=== PATIENT | female | born 1965 | race Caucasian/White ===

== ENCOUNTER 2018-07-17 13:05 | Emergency (ER) | payer BC ==
[2018-07-17] MEDS ORDERED: 0.9 % SODIUM CHLORIDE 1000ML 1,000 ML IV PRN (13:23)
[2018-07-17] MEDS ORDERED: LORAZEPAM 2 MG/ML VIAL IV ONE (13:24)
[2018-07-17 13:35] LABS: BASO % 0.3 % (0-6); EOS % 0.3 % (0-6); GRAN % 76.8 % (47-80); HEMATOCRIT 37.1 % (35.0-47.0); MEAN CELL VOLUME 86.9 fl (81-97); MEAN CORPUSCULAR HEMOGLOBIN 30.4 pg (27-33); MEAN PLATELET VOLUME 9.7 fl (7.4-10.4); MONO % 6.6 % (0-9); PLATELET COUNT 374 K/uL (130-400); RED BLOOD COUNT 4.27 M/uL (3.80-5.40); RED CELL DISTRIBUTION WIDTH 12.9 % (11.5-14.5); WHITE BLOOD COUNT W/O DIFF 10.8 K/uL (4.2-12.2)
[2018-07-17 13:52] LABS: BLOOD UREA NITROGEN 4 mg/dL (6-20); CREATININE 0.5 mg/dL (0.5-0.9); EST GLOMERULAR FILTRATION RATE > 60 mL/min
[2018-07-17 13:55] LABS: GLUCOSE,RANDOM 116 mg/dL (74-109)
--- NOTE | 2018-07-17 14:04 | Emergency Department Record ---
Anxiety - General Chief Complaint: Anxiety Stated Complaint: CHRISTOPHER,HIGH BLOOD PRESSURE VOMITING ANXIETY Time Seen by Provider: 07/17/18 13:21 Mode of Arrival: Wheelchair - History of Present Illness Onset/Timin -: Month(s) Place: Home Previous History of Same: Yes Severity: Moderate, Severe Quality: Constant Provoking factors: Emotional stress, Other Improves With: Nothing Worsens With: Thinking about event Associated symptoms: Palpitations, Shortness of breath - Related Data Home Medications: Previous Rx's Medication Instructions Recorded Lorazepam [Ativan] 1 mg PO Q6HR 2 Days #6 tablet 07/17/18 Allergies/Adverse Reactions: Allergies Allergy/AdvReac Type Severity Reaction Status Date / Time azithromycin Allergy Severe TACHYCARDIA Unverified 12/05/17 11:38 prochlorperazine Allergy Severe TACHYCARDIA Unverified 12/05/17 11:38 [From Compazine] prochlorperazine edisylate Allergy Severe TACHYCARDIA Unverified 12/05/17 11:38 [From Compazine] prochlorperazine maleate Allergy Severe TACHYCARDIA Unverified 12/05/17 11:38 [From Compazine] pseudoephedrine HCl Allergy Severe TACHYCARDIA Unverified 12/05/17 11:38 [From Sudafed] sulfamethoxazole Allergy Mild hives Unverified 12/05/17 11:38 [From Bactrim] trimethoprim [From Bactrim] Allergy Mild hives Unverified 12/05/17 11:38 bee venom protein (honey bee) Allergy ANAPHYLAXIS Verified 07/17/18 13:28 dopamine Allergy BEHAVIORAL Verified 07/17/18 13:28 CHANGES erythromycin base Allergy HIVES Unverified 07/17/18 13:28 Iodinated Contrast- Oral and Allergy HIVES Verified 07/17/18 13:29 IV Dye Travel Screening - Travel/Exposure Within Last 30 Days Have you traveled within the last 30 days?: No Review of Systems Constitutional: Denies: Chills, Fever, Weakness Eyes: Denies: Eye discharge, Photophobia ENT: Denies: Congestion, Ear pain, Hearing loss Respiratory: Denies: Cough, Dyspnea, Wheezes Cardiovascular: Denies: Arrhythmia, Chest pain, Palpitations, Syncope Endocrine: Denies: Fatigue, Polyuria Gastrointestinal: Denies: Abdominal pain, Nausea, Vomiting Genitourinary: Denies: Abnormal menses Musculoskeletal: Denies: Arthralgia, Back pain Skin: Denies: Bruising Neurological: Denies: Headache, Vertigo, Weakness Psychiatric: Reports: Anxiety. Denies: Auditory hallucinations, Depression, Homicidal thoughts, Suicidal thoughts Hematological/Lymphatic: Denies: Anemia Past Medical History - SOCIAL HISTORY Smoking Status: Never smoker Alcohol Use: None Drug Use: None - RESPIRATORY Hx Respiratory Disorders: No - CARDIOVASCULAR Hx Cardio Disorders: No - NEURO Hx Neuro Disorders: Yes Hx Parkinson's Disease: Yes (trauma induced) - GI Hx GI Disorders: No - Hx Genitourinary Disorders: No - ENDOCRINE Hx Endocrine Disorders: No Hx Diabetes: No (hypoglycemic) - MUSCULOSKELETAL Hx Musculoskeletal Disorders: No - PSYCH Hx Psych Problems: Yes Hx Anxiety: Yes - HEMATOLOGY/ONCOLOGY Hx Hematology/Oncology Disorders: No Family Medical History Any Significant Family History?: No Physical Exam - General General Appearance: Alert, Oriented x3, Cooperative, Moderate distress - Head Head exam: Normal inspection - Eye Eye exam: Normal appearance, PERRL - ENT ENT exam: Normal exam, Mucous membranes moist, Normal external ear exam, Normal orophraynx, TM's normal bilaterally - Neck Neck exam: Normal inspection, Full ROM. negative: Tenderness - Respiratory Respiratory exam: Normal lung sounds bilaterally. negative: Respiratory distress - Cardiovascular Cardiovascular Exam: Normal rhythm, Normal heart sounds, Tachycardia Peripheral Pulses: 2+: Radial (R), Radial (L) - GI/Abdominal GI/Abdominal exam: Soft, Normal bowel sounds. negative: Distended, Guarding, Tenderness - Extremities Extremities exam: Normal inspection. negative: Pedal edema - Back Back exam: Reports: Normal inspection - Neurological Neurological exam: Alert, Normal gait, Oriented X3 - Psychiatric Psychiatric exam: Anxious. negative: Flat affect, Homicidal ideation, Suicidal ideation - Skin Skin exam: Normal color. negative: Rash Course Vital Signs 07/17/18 13:10 Temperature 98.4 F Pulse Rate 105 H Respiratory 20 Rate Blood Pressure 183/100 Pulse Ox 100 - Reevaluation(s) Reevaluation #1: 07/17/18 14:41 Pt calm after ativan. Labs reviewed. Family at bedside and supportive. Requesting referral to out mental health. Not suicidal. Medical Decision Making - Lab Data Result diagrams: 07/17/18 13:25 07/17/18 13:25 Lab Results 07/17/18 07/17/18 07/17/18 Range/Units 13:25 13:25 13:25 WBC 10.8 (4.2-12.2) K/uL RBC 4.27 (3.80-5.40) M/uL Hgb 13.0 (11.6-16.0) gm/dl Hct 37.1 (35.0-47.0) % MCV 86.9 (81-97) fl MCH 30.4 (27-33) pg MCHC 35.0 (32-36) g/dl RDW 12.9 (11.5-14.5) % Plt Count 374 (130-400) K/uL MPV 9.7 (7.4-10.4) fl Gran % 76.8 (47-80) % Lymphocytes % 16.0 (16-45) % Monocytes % 6.6 (0-9) % Eosinophils % 0.3 (0-6) % Basophils % 0.3 (0-6) % Carbon Dioxide 22.0 (22-29) mmol/L Anion Gap 13.0 (7-16) BUN 4 L (6-20) mg/dL Creatinine 0.5 (0.5-0.9) mg/dL Estimated GFR > 60 mL/min Random Glucose 116 H (74-109) mg/dL Calcium 9.1 (8.6-10.0) mg/dL TSH 1.10 (0.270-4.20) uIU/mL Disposition Disposition: Discharge Clinical Impression: Anxiety as acute reaction to exceptional stress Condition: (2) Stable Instructions: Social Anxiety Disorder (ED) Additional Instructions: [facility] up [facility] at [phone] regarding a Behavioral Health evaluation. Prescriptions: Lorazepam [Ativan] 1 mg PO Q6HR 2 Days #6 tablet Forms: Patient Portal Access Time of Disposition: 14:43 Quality - Quality Measures Quality Measures: N/A - Blood Pressure Screening Does Patient Have Any of the Following: No Blood Pressure Classification: Hypertensive Reading Systolic Measurement: 183 Diastolic Measurement: 100 Screening for High Blood Pressure: < Pre-Hypertensive BP, F/U Documented > [ G8950] Pre-Hypertensive Follow-up Interventions: Follow-up with rescreen every year.
== END 2018-07-17 16:07 | disposition home or self-care (01) ==
LOC: ER 13:05
DX: F41.1 Generalized anxiety disorder (principal); F43.0 Acute stress reaction; R11.11 Vomiting without nausea; R06.02 Shortness of breath; E03.9 Hypothyroidism, unspecified; E16.2 Hypoglycemia, unspecified; E87.6 Hypokalemia
CPT/HCPCS: 99284 ×2; 96374; 85025; 80048; 80053; 84439; 84443; J2060

== ENCOUNTER 2019-04-10 10:12 | Emergency (ER) | payer BC ==
--- NOTE | 2019-04-10 10:36 | Emergency Department Record ---
Anxiety - General Chief Complaint: Panic attack Stated Complaint: PANIC ATTACK Time Seen by Provider: 04/10/19 10:31 Source: Patient Mode of Arrival: Ambulatory Limitations: No limitations - History of Present Illness Initial Comments: 53 yo female presents with an anxiety attack. She has a long history of PTSD. Her dog yesterday. She has not been able to calm her emotions. She denies any other changes in her health. She is a patient of Lubna Artis at [facility]. Complaint: Anxiety -: Days(s) (1) Symptoms: Other Place: Home Previous History of Same: Yes Severity: Severe Quality: Constant Provoking factors: Emotional stress, Other (Dog ) Improves With: Nothing Worsens With: Nothing Associated symptoms: Denies other symptoms - Related Data Home Medications: Home Medications Medication Instructions Recorded Confirmed Last Taken Lorazepam [Ativan] 1 mg PO TID 04/10/19 04/10/19 Unknown Allergies/Adverse Reactions: Allergies Allergy/AdvReac Type Severity Reaction Status Date / Time azithromycin Allergy Severe TACHYCARDIA Verified 04/10/19 10:17 prochlorperazine Allergy Severe TACHYCARDIA Verified 04/10/19 10:17 [From Compazine] prochlorperazine edisylate Allergy Severe TACHYCARDIA Verified 04/10/19 10:17 [From Compazine] prochlorperazine maleate Allergy Severe TACHYCARDIA Verified 04/10/19 10:17 [From Compazine] pseudoephedrine HCl Allergy Severe TACHYCARDIA Verified 04/10/19 10:17 [From Sudafed] sulfamethoxazole Allergy Mild hives Verified 04/10/19 10:17 [From Bactrim] trimethoprim [From Bactrim] Allergy Mild hives Verified 04/10/19 10:17 bee venom protein (honey bee) Allergy ANAPHYLAXIS Verified 04/10/19 10:17 carbidopa Allergy PT UNSURE Verified 04/10/19 10:21 OF REACTION dopamine Allergy BEHAVIORAL Verified 04/10/19 10:17 CHANGES doxycycline Allergy "been Verified 04/10/19 10:21 allergic since little, hives" erythromycin base Allergy HIVES Verified 04/10/19 10:17 escitalopram [From Lexapro] Allergy makes Verified 04/10/19 10:21 anxiety worse hydroxyzine Allergy makes Verified 04/10/19 10:21 anxiety worse Iodinated Contrast Media Allergy HIVES Verified 04/10/19 10:17 [Iodinated Contrast- Oral and IV Dye] sertraline [From Zoloft] Allergy makes Verified 04/10/19 10:21 anxiety worse vilazodone [From Viibryd] Allergy makes Verified 04/10/19 10:21 anxiety worse Travel Screening - Travel/Exposure Within Last 30 Days Have you traveled within the last 30 days?: No Review of Systems Constitutional: Denies: Chills, Fever, Malaise, Weakness Eyes: Denies: Eye discharge ENT: Denies: Congestion, Throat pain Respiratory: Denies: Cough, Dyspnea Cardiovascular: Denies: Chest pain, Syncope Endocrine: Denies: Fatigue Gastrointestinal: Denies: Abdominal pain, Diarrhea, Nausea, Vomiting Genitourinary: Denies: Dysuria Musculoskeletal: Denies: Arthralgia, Back pain, Myalgia Skin: Denies: Bruising, Change in color, Rash Neurological: Denies: Headache, Weakness Psychiatric: Reports: Anxiety. Denies: Depression Hematological/Lymphatic: Denies: Anemia, Easy bleeding, Easy bruising Past Medical History - SOCIAL HISTORY Smoking Status: Never smoker Alcohol Use: None Drug Use: None - RESPIRATORY Hx Respiratory Disorders: Yes Comment:: trouble breathing during panic attacks - CARDIOVASCULAR Hx Cardio Disorders: No - NEURO Hx Neuro Disorders: Yes Hx Parkinson's Disease: Yes (trauma induced) - GI Hx GI Disorders: No - Hx Genitourinary Disorders: No - ENDOCRINE Hx Endocrine Disorders: No Hx Diabetes: No (hypoglycemic) - MUSCULOSKELETAL Hx Musculoskeletal Disorders: No - PSYCH Hx Psych Problems: Yes Hx Anxiety: Yes Comment:: PTSD - HEMATOLOGY/ONCOLOGY Hx Hematology/Oncology Disorders: No Family Medical History Any Significant Family History?: No Physical Exam - General General Appearance: Alert, Oriented x3, Cooperative, No acute distress Limitations: No limitations - Head Head exam: Atraumatic, Normal inspection - Eye Eye exam: Normal appearance, PERRL. negative: Conjunctival injection, Scleral icterus - ENT ENT exam: Normal exam Ear exam: Normal external inspection Nasal Exam: Normal inspection Mouth exam: Normal external inspection - Neck Neck exam: Normal inspection - Respiratory Respiratory exam: Normal lung sounds bilaterally. negative: Respiratory distress - Cardiovascular Cardiovascular Exam: Regular rate, Normal rhythm, Normal heart sounds - Rectal Rectal exam: Deferred - exam: Deferred - Extremities Extremities exam: Normal inspection - Neurological Neurological exam: Alert, Normal gait, Oriented X3. negative: Altered - Psychiatric Psychiatric exam: Anxious (tearful) - Skin Skin exam: Dry, Intact, Normal color, Warm Course Vital Signs 04/10/19 10:14 Temperature 97.6 F Pulse Rate 105 H Respiratory 16 Rate Blood Pressure 219/125 Pulse Ox 100 - Reevaluation(s) Reevaluation #1: 04/10/19 10:37 Message left with the patient's behavioral therapist at [facility] Lubna. 04/10/19 12:03 Lubna is available and will see the patient in the ED 04/10/19 12:34 The patient was reassured and given coping skills again She is stable for DC Disposition Disposition: Discharge Clinical Impression: Anxiety attack Disposition: Home, Self-Care Condition: (1) Good Instructions: Panic Disorder (ED) Additional Instructions: Return to the ER for a recheck if worse, any new concerns or questions Forms: Patient Portal Access Time of Disposition: 12:04 Quality - Quality Measures Quality Measures: N/A - Blood Pressure Screening Does Patient Have Any of the Following: Active Dx of HTN Blood Pressure Classification: Hypertensive Reading Systolic Measurement: 219 Diastolic Measurement: 125 Screening for High Blood Pressure: Patient Exclusion, Hx of HTN [G9744]
[2019-04-10] MEDS: LORAZEPAM 2 MG/ML VIAL IV ONE (11:08)
[2019-04-10] MEDS: IBUPROFEN 400 MG TABLET PO ONE (11:36)
== END 2019-04-10 12:52 | disposition home or self-care (01) ==
LOC: ER 10:12
DX: F43.0 Acute stress reaction (principal); I10 Essential (primary) hypertension
CPT/HCPCS: 96374; 99284

== ENCOUNTER 2019-05-04 13:01 | Emergency (ER) | payer SELFPAY ==
--- NOTE | 2019-05-04 13:27 | Emergency Department Record ---
Anxiety - General Chief Complaint: Panic attack Stated Complaint: ANXIETY Time Seen by Provider: 05/04/19 13:14 Source: Patient, Family Mode of Arrival: Wheelchair Limitations: No limitations - History of Present Illness Initial Comments: The patient is here due to a long hx of anxiety for at least a year and now is having an extra bad flare up for the last 4 hours. She has a long hx of similar issues and does take Ativan for it but it has not helped today. She is very upset due to the holidays coming up and she does not have a nito tree up yet and she will be unable to see her daughter. The patient does see a counselor here at [facility] weekly and has been doing better. She denies any CP, SOB, CHRISTOPHER, or AP. She did just take a 1 mg Ativan orally a half hour ago. Complaint: Anxiety Onset/Timin -: Hour(s) Symptoms: Other Place: Home Previous History of Same: Yes Severity: Severe Quality: Intermittant Provoking factors: Emotional stress Improves With: Medication - Related Data Allergies/Adverse Reactions: Allergies Allergy/AdvReac Type Severity Reaction Status Date / Time azithromycin Allergy Severe TACHYCARDIA Verified 05/04/19 13:15 prochlorperazine Allergy Severe TACHYCARDIA Verified 05/04/19 13:15 [From Compazine] prochlorperazine edisylate Allergy Severe TACHYCARDIA Verified 05/04/19 13:15 [From Compazine] prochlorperazine maleate Allergy Severe TACHYCARDIA Verified 05/04/19 13:15 [From Compazine] pseudoephedrine HCl Allergy Severe TACHYCARDIA Verified 05/04/19 13:15 [From Sudafed] sulfamethoxazole Allergy Mild hives Verified 05/04/19 13:15 [From Bactrim] trimethoprim [From Bactrim] Allergy Mild hives Verified 05/04/19 13:15 bee venom protein (honey bee) Allergy ANAPHYLAXIS Verified 05/04/19 13:15 carbidopa Allergy PT UNSURE Verified 05/04/19 13:15 OF REACTION dopamine Allergy BEHAVIORAL Verified 05/04/19 13:15 CHANGES doxycycline Allergy "been Verified 05/04/19 13:15 allergic since little, hives" erythromycin base Allergy HIVES Verified 05/04/19 13:15 escitalopram [From Lexapro] Allergy makes Verified 05/04/19 13:15 anxiety worse hydroxyzine Allergy makes Verified 05/04/19 13:15 anxiety worse Iodinated Contrast Media Allergy HIVES Verified 05/04/19 13:15 [Iodinated Contrast- Oral and IV Dye] sertraline [From Zoloft] Allergy makes Verified 05/04/19 13:15 anxiety worse vilazodone [From Viibryd] Allergy makes Verified 05/04/19 13:15 anxiety worse Travel Screening - Travel/Exposure Within Last 30 Days Have you traveled within the last 30 days?: No - Travel/Exposure Within Last Year Have you traveled outside the [place] in the last year?: No - Additonal Travel Details Have you been exposed to anyone with a communicable illness?: No - Travel Symptoms Symptom Screening: None Review of Systems Constitutional: Denies: Chills, Fever Eyes: Denies: Eye discharge ENT: Denies: Congestion Respiratory: Denies: Cough, Dyspnea Cardiovascular: Denies: Chest pain Gastrointestinal: Denies: Nausea Genitourinary: Denies: Dysuria Musculoskeletal: Denies: Back pain Skin: Denies: Bruising Psychiatric: Reports: Anxiety Past Medical History - SOCIAL HISTORY Smoking Status: Never smoker Alcohol Use: None Drug Use Detail:: Marijuana - RESPIRATORY Hx Respiratory Disorders: Yes Comment:: trouble breathing during panic attacks - CARDIOVASCULAR Hx Cardio Disorders: No - NEURO Hx Neuro Disorders: Yes Hx Parkinson's Disease: Yes (trauma induced) - GI Hx GI Disorders: No - Hx Genitourinary Disorders: No - ENDOCRINE Hx Endocrine Disorders: No Hx Diabetes: No (hypoglycemic) - MUSCULOSKELETAL Hx Musculoskeletal Disorders: No - PSYCH Hx Psych Problems: Yes Hx Anxiety: Yes Comment:: PTSD - HEMATOLOGY/ONCOLOGY Hx Hematology/Oncology Disorders: No Family Medical History Any Significant Family History?: No Physical Exam - General General Appearance: Alert, Cooperative, Mild distress (due to anxeity.) - Head Head exam: Atraumatic, Normocephalic - Eye Eye exam: Normal appearance, PERRL - ENT Throat exam: Normal inspection. negative: Tonsillar erythema, Tonsillar exudate - Neck Neck exam: Normal inspection, Full ROM. negative: Tenderness - Respiratory Respiratory exam: Normal lung sounds bilaterally. negative: Respiratory distress - Cardiovascular Cardiovascular Exam: Regular rate, Normal rhythm, Normal heart sounds - GI/Abdominal GI/Abdominal exam: Soft, Normal bowel sounds. negative: Tenderness - Extremities Extremities exam: Normal inspection, Full ROM, Normal capillary refill. negative: Tenderness - Neurological Neurological exam: Alert, Oriented X3. negative: Abnormal gait, Altered, Motor sensory deficit - Psychiatric Psychiatric exam: Anxious Course Vital Signs 05/04/19 05/04/19 13:07 13:12 Temperature 97.3 F L Pulse Rate 20 L 99 H Respiratory 20 Rate Blood Pressure 176/102 Pulse Ox 100 - Reevaluation(s) Reevaluation #1: The patient is doing better at this time. She is much more calm and relaxed. 05/04/19 14:02 Reevaluation #2: The patient is doing a lot better at this time. She is ready for home. 05/04/19 14:10 Disposition Disposition: Discharge Clinical Impression: Anxiety attack Disposition: Home, Self-Care Condition: (2) Stable Instructions: Generalized Anxiety Disorder (ED) Additional Instructions: Please continue your regular medicines and please see your doctor next week if not better. Return to the ER for any worsening issues. Forms: Patient Portal Access Time of Disposition: 14:11 Quality - Quality Measures Quality Measures: N/A - Blood Pressure Screening View Details: Yes Does Patient Have Any of the Following: No Blood Pressure Classification: Hypertensive Reading Systolic Measurement: 176 Diastolic Measurement: 102 Screening for High Blood Pressure: < First Hypertensive BP, F/U Documented > [G8950] First Hypertensive Follow-up Interventions: Referral to alternative/primary care provider.
[2019-05-04] MEDS: LORAZEPAM 2 MG/ML VIAL IM ONE (13:32)
== END 2019-05-04 14:22 | disposition home or self-care (01) ==
LOC: ER 13:01
DX: F41.1 Generalized anxiety disorder (principal); F43.0 Acute stress reaction
CPT/HCPCS: 96372; 99284

== ENCOUNTER 2019-05-05 10:52 | Emergency (ER) | payer SELFPAY ==
--- NOTE | 2019-05-05 12:32 | Emergency Department Record ---
Anxiety - General Chief Complaint: Anxiety Stated Complaint: ANXIETY Time Seen by Provider: 05/05/19 12:14 Source: Patient, RN notes reviewed Mode of Arrival: Wheelchair - History of Present Illness Initial Comments: crying and her mother's birthday is today and she two years ago and she sees a crossing flagman for her anxiety and PTSD. Patient denies being suicidal and she gets ativan from Dr Bowden 1 mg TID Onset/Timin -: Days(s) Symptoms: Muscle cramps, Sense of impending doom, Other Place: Home Previous History of Same: Yes Quality: Constant Provoking factors: Other Improves With: Medication Worsens With: Nothing Associated symptoms: Denies other symptoms - Related Data Allergies/Adverse Reactions: Allergies Allergy/AdvReac Type Severity Reaction Status Date / Time azithromycin Allergy Severe TACHYCARDIA Verified 05/05/19 11:31 prochlorperazine Allergy Severe TACHYCARDIA Verified 05/05/19 11:31 [From Compazine] prochlorperazine edisylate Allergy Severe TACHYCARDIA Verified 05/05/19 11:31 [From Compazine] prochlorperazine maleate Allergy Severe TACHYCARDIA Verified 05/05/19 11:31 [From Compazine] pseudoephedrine HCl Allergy Severe TACHYCARDIA Verified 05/05/19 11:31 [From Sudafed] sulfamethoxazole Allergy Mild hives Verified 05/05/19 11:31 [From Bactrim] trimethoprim [From Bactrim] Allergy Mild hives Verified 05/05/19 11:31 bee venom protein (honey bee) Allergy ANAPHYLAXIS Verified 05/05/19 11:31 carbidopa Allergy PT UNSURE Verified 05/05/19 11:31 OF REACTION dopamine Allergy BEHAVIORAL Verified 05/05/19 11:31 CHANGES doxycycline Allergy "been Verified 05/05/19 11:31 allergic since little, hives" erythromycin base Allergy HIVES Verified 05/05/19 11:31 escitalopram [From Lexapro] Allergy makes Verified 05/05/19 11:31 anxiety worse hydroxyzine Allergy makes Verified 05/05/19 11:31 anxiety worse Iodinated Contrast Media Allergy HIVES Verified 05/05/19 11:31 [Iodinated Contrast- Oral and IV Dye] sertraline [From Zoloft] Allergy makes Verified 05/05/19 11:31 anxiety worse vilazodone [From Viibryd] Allergy makes Verified 05/05/19 11:31 anxiety worse Travel Screening - Travel/Exposure Within Last 30 Days Have you traveled within the last 30 days?: No - Travel/Exposure Within Last Year Have you traveled outside the [place] in the last year?: No - Additonal Travel Details Have you been exposed to anyone with a communicable illness?: No - Travel Symptoms Symptom Screening: None Review of Systems Reviewed: No additional complaints except as noted below Constitutional: Reports: As per HPI. Denies: Chills, Fever, Malaise, Night sweats, Weakness, Weight change Eyes: Reports: As per HPI. Denies: Eye discharge, Eye pain, Photophobia, Vision change ENT: Reports: As per HPI. Denies: Congestion, Dental pain, Ear pain, Epistaxis, Hearing loss, Throat pain Respiratory: Reports: As per HPI. Denies: Cough, Dyspnea, Hemoptysis, Stridor, Wheezes Cardiovascular: Reports: As per HPI. Denies: Arrhythmia, Chest pain, Dyspnea on exertion, Edema, Murmurs, Orthopnea, Palpitations, Paroxysmal nocturnal dyspnea, Rheumatic Fever, Syncope Endocrine: Reports: As per HPI. Denies: Fatigue, Heat or cold intolerance, Polydipsia, Polyuria Gastrointestinal: Reports: As per HPI. Denies: Abdominal pain, Constipation, Diarrhea, Hematemesis, Hematochezia, Melena, Nausea, Vomiting Genitourinary: Reports: As per HPI. Denies: Abnormal menses, Discharge, Dyspareunia, Dysuria, Frequency, Hematuria, Incontinence, Retention, Urgency Musculoskeletal: Reports: As per HPI. Denies: Arthralgia, Back pain, Gout, Joint swelling, Myalgia, Neck pain Skin: Reports: As per HPI. Denies: Bruising, Change in color, Change in hair/nails, Lesions, Pruritus, Rash Neurological: Reports: As per HPI. Denies: Abnormal gait, Confusion, Headache, Numbness, Paresthesias, Seizure, Tingling, Tremors, Vertigo, Weakness Psychiatric: Reports: As per HPI. Denies: Anxiety, Auditory hallucinations, Depression, Homicidal thoughts, Suicidal thoughts, Visual hallucinations Hematological/Lymphatic: Reports: As per HPI. Denies: Anemia, Blood Clots, Easy bleeding, Easy bruising, Swollen glands Past Medical History - SOCIAL HISTORY Smoking Status: Never smoker Alcohol Use: None Drug Use: None - RESPIRATORY Hx Respiratory Disorders: Yes Comment:: trouble breathing during panic attacks - CARDIOVASCULAR Hx Cardio Disorders: No - NEURO Hx Neuro Disorders: Yes Hx Parkinson's Disease: Yes (trauma induced) - GI Hx GI Disorders: No - Hx Genitourinary Disorders: No - ENDOCRINE Hx Endocrine Disorders: No Hx Diabetes: No (hypoglycemic) - MUSCULOSKELETAL Hx Musculoskeletal Disorders: No - PSYCH Hx Psych Problems: Yes Hx Anxiety: Yes Comment:: PTSD - HEMATOLOGY/ONCOLOGY Hx Hematology/Oncology Disorders: No Family Medical History Any Significant Family History?: No Physical Exam - General General Appearance: Alert, Oriented x3, Cooperative, No acute distress - Head Head exam: Normal inspection - Eye Eye exam: Normal appearance, PERRL Pupils: Normal accommodation - ENT ENT exam: Normal exam, Mucous membranes moist, Normal external ear exam, Normal orophraynx, TM's normal bilaterally Ear exam: Normal external inspection. negative: External canal tenderness Nasal Exam: Normal inspection. negative: Discharge, Sinus tenderness Mouth exam: Normal external inspection, Tongue normal Teeth exam: Normal inspection. negative: Dental caries Throat exam: Normal inspection. negative: Tonsillar erythema, Tonsillar exudate - Neck Neck exam: Normal inspection, Full ROM. negative: Tenderness - Respiratory Respiratory exam: Normal lung sounds bilaterally. negative: Respiratory distress - Cardiovascular Cardiovascular Exam: Regular rate, Normal rhythm, Normal heart sounds - GI/Abdominal GI/Abdominal exam: Soft, Normal bowel sounds. negative: Tenderness - Rectal Rectal exam: Deferred - exam: Deferred - Extremities Extremities exam: Normal inspection, Full ROM, Normal capillary refill. negative: Tenderness - Back Back exam: Reports: Normal inspection, Full ROM. Denies: Muscle spasm, Rash noted, Tenderness - Neurological Neurological exam: Alert, Normal gait, Oriented X3, Reflexes normal - Psychiatric Psychiatric exam: Normal affect, Normal mood - Skin Skin exam: Dry, Intact, Normal color, Warm Course Vital Signs 05/05/19 11:35 Temperature 97.7 F Pulse Rate 97 H Respiratory 20 Rate Blood Pressure 162/111 Pulse Ox 100 Medical Decision Making - Lab Data Result diagrams: 05/05/19 12:50 05/05/19 12:50 Disposition Clinical Impression: Panic attack Disposition: Home, Self-Care Condition: (1) Good Instructions: Social Anxiety Disorder (ED) Additional Instructions: follow up with crossing flagman and Dr Bowden as scheduled sooner if more problems increase ativan to 1.5mg three times aday for 48 hours than back to 1 mg three times a day Forms: Patient Portal Access Time of Disposition: 13:45 Quality - Quality Measures Quality Measures: N/A - Blood Pressure Screening Does Patient Have Any of the Following: No Blood Pressure Classification: Hypertensive Reading Systolic Measurement: 162 Diastolic Measurement: 111 Screening for High Blood Pressure: < First Hypertensive BP, F/U Documented > [G8950] First Hypertensive Follow-up Interventions: Referral to alternative/primary care provider.
[2019-05-05] MEDS: LORAZEPAM 2 MG/ML VIAL IV ONE (12:57)
[2019-05-05] MEDS: 0.9 % SODIUM CHLORIDE 1,000 ML BAG IV ONE (12:57)
[2019-05-05 13:22] LABS: HEMATOCRIT 38.7 % (35.0-47.0); MEAN CELL VOLUME 88.6 fl (81-97); MEAN CORPUSCULAR HEMOGLOBIN 29.7 pg (27-33); MEAN CORPUSCULAR HGB CONC 33.6 g/dl (32-36); MEAN PLATELET VOLUME 10.6 fl (7.4-10.4); PLATELET COUNT 323 K/uL (130-400); RED BLOOD COUNT 4.37 M/uL (3.80-5.40); RED CELL DISTRIBUTION WIDTH 12.8 % (11.5-14.5); WHITE BLOOD COUNT W/O DIFF 14.1 K/uL (4.2-12.2)
[2019-05-05 13:32] LABS: BLOOD UREA NITROGEN 6 mg/dL (6-20); CREATININE 0.6 mg/dL (0.5-0.9); EST GLOMERULAR FILTRATION RATE > 60 mL/min
[2019-05-05 13:35] LABS: GLUCOSE,RANDOM 100 mg/dL (74-109)
== END 2019-05-05 14:09 | disposition home or self-care (01) ==
LOC: ER 10:52
DX: R41.0 Disorientation, unspecified (principal); R25.2 Cramp and spasm
CPT/HCPCS: 80048; 85027; 96374; 99284; J7030

== ENCOUNTER 2019-07-15 14:36 | Emergency (ER) | payer MEDICAID ==
[2019-07-15] MEDS ORDERED: LORAZEPAM 2 MG/ML VIAL IV ONE ×2 (15:13→15:48)
--- NOTE | 2019-07-15 15:16 | Emergency Department Record ---
Anxiety - General Chief Complaint: Anxiety Stated Complaint: ANXIETY ATTACK Time Seen by Provider: 07/15/19 15:02 Source: Patient, Family Mode of Arrival: Wheelchair Limitations: No limitations - History of Present Illness Initial Comments: The patient is here due to worsening of her chronic anxiety today. She has a LONG hx of anxiety and PTSD and now today feels more anxious. Per the patient and she has had a rough 2 weeks with medical issues mainly relating to a hordeolum of her eye. She has been using Tobramycin eye ointment and thinks she could be having an allergic reaction to it today even though she has been using it for 2 weeks. There is no rash, itching, trouble breathing, difficulty swallowing or voice changes. MD Complaint: Anxiety Onset/Timin -: Days(s) Symptoms: Other Place: Home Previous History of Same: Yes Provoking factors: Other Improves With: Nothing Worsens With: Nothing Associated symptoms: Other - Related Data Home Medications: Home Medications Medication Instructions Recorded Confirmed Last Taken Amoxicillin/Potassium Clav 875 mg PO ASDIR 07/15/19 07/15/19 07/14/19 [Augmentin 875-125 Tablet] Ibuprofen [Ibu] 800 mg PO ASDIR 07/15/19 07/15/19 07/15/19 Tobramycin/Dexamethasone [Tobradex 1 applic AFFEYE ASDIR 07/15/19 07/15/19 07/15/19 Eye Ointment] Allergies/Adverse Reactions: Allergies Allergy/AdvReac Type Severity Reaction Status Date / Time azithromycin Allergy Severe TACHYCARDIA Verified 07/15/19 14:47 prochlorperazine Allergy Severe TACHYCARDIA Verified 07/15/19 14:47 [From Compazine] prochlorperazine edisylate Allergy Severe TACHYCARDIA Verified 07/15/19 14:47 [From Compazine] prochlorperazine maleate Allergy Severe TACHYCARDIA Verified 07/15/19 14:47 [From Compazine] pseudoephedrine HCl Allergy Severe TACHYCARDIA Verified 07/15/19 14:47 [From Sudafed] sulfamethoxazole Allergy Mild hives Verified 07/15/19 14:47 [From Bactrim] trimethoprim [From Bactrim] Allergy Mild hives Verified 07/15/19 14:47 bee venom protein (honey bee) Allergy ANAPHYLAXIS Verified 07/15/19 14:47 carbidopa Allergy PT UNSURE Verified 07/15/19 14:47 OF REACTION dopamine Allergy BEHAVIORAL Verified 07/15/19 14:47 CHANGES doxycycline Allergy "been Verified 07/15/19 14:47 allergic since little, hives" erythromycin base Allergy HIVES Verified 07/15/19 14:47 escitalopram [From Lexapro] Allergy makes Verified 07/15/19 14:47 anxiety worse hydroxyzine Allergy makes Verified 07/15/19 14:47 anxiety worse Iodinated Contrast Media Allergy HIVES Verified 07/15/19 14:47 [Iodinated Contrast- Oral and IV Dye] sertraline [From Zoloft] Allergy makes Verified 07/15/19 14:47 anxiety worse vilazodone [From Viibryd] Allergy makes Verified 07/15/19 14:47 anxiety worse Travel/Exposure Screening - Travel/Exposure Within Last 30 Days Have you traveled within the last 30 days?: No - Travel/Exposure Within Last Year Have you traveled outside the [place] in the last year?: No - Additonal Travel/Exposure Details Have you been exposed to anyone with a communicable illness?: No - Travel Symptoms Symptom Screening: None Review of Systems Constitutional: Denies: Chills, Fever Eyes: Denies: Eye discharge ENT: Denies: Congestion Respiratory: Denies: Cough, Dyspnea Past Medical History - SOCIAL HISTORY Smoking Status: Never smoker Alcohol Use: None Drug Use: None - RESPIRATORY Hx Respiratory Disorders: Yes Comment:: trouble breathing during panic attacks - CARDIOVASCULAR Hx Cardio Disorders: No - NEURO Hx Neuro Disorders: Yes Hx Parkinson's Disease: Yes (trauma induced) - GI Hx GI Disorders: No - Hx Genitourinary Disorders: No - ENDOCRINE Hx Endocrine Disorders: No Hx Diabetes: No (hypoglycemic) - MUSCULOSKELETAL Hx Musculoskeletal Disorders: No - PSYCH Hx Psych Problems: Yes Hx Anxiety: Yes Comment:: PTSD - HEMATOLOGY/ONCOLOGY Hx Hematology/Oncology Disorders: No Family Medical History Any Significant Family History?: No Physical Exam - General General Appearance: Alert, Oriented x3, Cooperative, Mild distress (Due to anxiety.) - Head Head exam: Atraumatic, Normocephalic - Eye Eye exam: PERRL. negative: Conjunctival injection - ENT Throat exam: Normal inspection. negative: Tonsillar erythema, Tonsillar exudate - Neck Neck exam: Normal inspection, Full ROM. negative: Tenderness - Respiratory Respiratory exam: Normal lung sounds bilaterally. negative: Respiratory distress - Cardiovascular Cardiovascular Exam: Regular rate, Normal rhythm, Normal heart sounds - GI/Abdominal GI/Abdominal exam: Soft, Normal bowel sounds. negative: Tenderness - Extremities Extremities exam: Normal inspection, Full ROM, Normal capillary refill. negative: Tenderness - Neurological Neurological exam: Alert. negative: Motor sensory deficit - Psychiatric Psychiatric exam: Anxious Course Vital Signs 07/15/19 14:53 Temperature 98 F Pulse Rate 94 H Respiratory 24 Rate Blood Pressure 179/98 Pulse Ox 100 - Reevaluation(s) Reevaluation #1: The patient is doing much better at this time. She is much more calm and is ready for home. 07/15/19 16:29 Disposition Disposition: Discharge Clinical Impression: Panic attack Disposition: Home, Self-Care Condition: (2) Stable Instructions: Social Anxiety Disorder (ED) Additional Instructions: Please continue your regular medicines and please see your doctor next week as planned. Return to the ER for any worsening issues. Forms: Patient Portal Access Time of Disposition: 16:29 Quality - Quality Measures Quality Measures: N/A - Blood Pressure Screening View Details: Yes Does Patient Have Any of the Following: No Blood Pressure Classification: Hypertensive Reading Systolic Measurement: 179 Diastolic Measurement: 98 Screening for High Blood Pressure: < First Hypertensive BP, F/U Documented > [G8 950] First Hypertensive Follow-up Interventions: Referral to alternative/primary care provider.
[2019-07-15] MEDS ORDERED: ACETAMINOPHEN 325 MG TAB PO ONE (16:16)
== END 2019-07-15 16:42 | disposition home or self-care (01) ==
LOC: ER 14:36
DX: F41.0 Panic disorder [episodic paroxysmal anxiety] (principal); F43.0 Acute stress reaction
CPT/HCPCS: 96374; 99284